=== PATIENT | male | born 1980 | race Caucasian/White ===

== ENCOUNTER → 2018-03-09 | Outpatient (CLI) | payer OTHER ==
[~2018-03-09] MED LIST: ISOVUE-370 76% 100ML VIAL (Q9967) As Ordered ONE
--- NOTE | 2018-03-09 19:03 | REP ---
Clinical: Hypertension and neck pain. Rule out carotid dissection. Technique: Axial contrast enhanced images from the skull base to the thoracic arch using angiographic technique with 100 ml Isovue 370 intravenous contrast material. Coronal and sagittal re-formations along with volume rendered MPR sequences. Findings: There is appropriate arterial enhancement and the bilateral carotid arteries extending from the thoracic arch to the skull base including common carotid arteries as well as the internal and external carotid arteries bilaterally and associated branch vessels are essentially symmetric and normal. There is no evidence for dissection and no significant atheromatous plaquing. The bilateral vertebral arteries are patent with noted right dominant vertebral artery appreciated. Soft tissues through the neck including oropharynx, retropharyngeal soft tissues, parapharyngeal soft tissues and hypopharynx appear symmetric and normal. Parotid, submandibular, and submental glands are symmetric and normal. No significant adenopathy. No obvious mass lesion. The airway is patent. There is no evidence for mass effect. The osseous structures are intact. The sinuses are relatively well aerated and clear; incidental left maxillary mucocele noted. Impression: 1. No evidence for carotid artery stenosis or dissection. Incidental right dominant vertebral artery. 2. CT neck is otherwise essentially normal. Incidental left maxillary mucocele noted. Electronically Signed by Brennen Urena MD 03/09/2018 06:56 P
== END ==
LOC: M RAD 17:51
PROVIDERS: ATTEND Physician Assistant
DX: M54.2 Cervicalgia (principal)
CPT/HCPCS: 70498; Q9967

== ENCOUNTER → 2024-09-18 | Outpatient (CLI) | payer OTHER | LOC: M RAD 09:04 | PROVIDERS: ATTEND Physician Assistant | DX: M47.27 Other spondylosis with radiculopathy, lumbosacral region (principal); M51.26 Other intervertebral disc displacement, lumbar region ==